=== PATIENT | male | born 1965 | race Caucasian/White ===

== ENCOUNTER 2017-06-29 04:32 | Emergency (ER) | payer MEDICAID ==
[~2017-06-29] VITALS: Ht 185.4 cm; Wt 109.0 kg
[2017-06-29] MEDS ORDERED: SODIUM CHLORIDE 0.9% 1,000 ML IV ONE (05:15)
[2017-06-29] MEDS ORDERED: ONDANSETRON HCL 4MG/2ML VIAL IV ONE (05:15)
[2017-06-29] MEDS ORDERED: KETOROLAC 15MG/ML VIAL IV ONE (05:15)
[2017-06-29 05:19] LABS: BASOPHILS % 0.5 % (0.0-2.0); HEMATOCRIT. 41.2 % (42.0-52.0); HEMOGLOBIN. 14.1 g/dL (14.0-18.0); LYMPHOCYTES % 13.4 % (20.0-50.0); MEAN CORPUSCULAR VOLUME 81.6 fL (80.0-94.0); MEAN PLATELET VOLUME 8.3 fl (7.4-10.4); MONOCYTES % 9.1 % (2.0-8.0); PLATELET 188 x1000/uL (130-400); RED BLOOD CELL COUNT 5.04 mill/uL (4.7-6.1)
[2017-06-29 05:26] LABS: PROTHROMBIN TIME 10.1 sec (9.4-11.6)
[2017-06-29 05:37] LABS: CARBON DIOXIDE 25 mEq/L (21-32); CHLORIDE 105 mEq/L (98-107)
[2017-06-29 07:11] LABS: CLARITY URINE CLEAR (CLEAR); COLOR URINE YELLOW (YELLOW); GLUCOSE URINE NEGATIVE (NEGATIVE); KETONES URINE NEGATIVE (NEGATIVE); LEUKOCYTE ESTERASE URINE TRACE (NEGATIVE); NITRITE URINE NEGATIVE (NEGATIVE); OCCULT BLOOD URINE NEGATIVE (NEGATIVE); PROTEIN URINE NEGATIVE (NEGATIVE); SPECIFIC GRAVITY URINE 1.033 (1.005-1.030)
[2017-06-29] MEDS ORDERED: CEFTRIAXONE 1 G PREMIX 50 ML IV ONE (07:15)
[2017-06-29] MEDS ORDERED: AZITHROMYCIN 500 MG TABLET PO ONE (07:15)
[2017-06-29] MEDS ORDERED: IOHEXOL-300 100 ML BOTTLE ONE (09:53)
[2017-06-29 10:56] VITALS: BP 127/85
[2017-07-02 05:20] LABS: CHLAMYDIA TRACHOMATIS NAA Negative (Negative); NEISSERIA GONORRHOEAE NAA Negative (Negative)
== END 2017-06-29 10:57 | disposition home or self-care (01) ==
LOC: ER 04:32
DX: N43.3 Hydrocele, unspecified (principal); N45.3 Epididymo-orchitis; K76.89 Other specified diseases of liver; N40.0 Benign prostatic hyperplasia without lower urinary tract symptoms; F12.10 Cannabis abuse, uncomplicated
CPT/HCPCS: 36415; 74177; 76870; 80053; 81001; 83690; 85025; 85610; 87086; 87491; 87591; 93976; 96361; 96365; 96375; 99285; J0696; J1885; J2405; J7030; Q9967; Z7610

== ENCOUNTER 2017-09-19 05:40 | Emergency (ER) | payer MEDICAID ==
[~2017-09-19] VITALS: Ht 188 cm; Wt 104.0 kg
[2017-09-19] MEDS ORDERED: ONDANSETRON HCL 4MG/2ML VIAL IV STA (07:35)
[2017-09-19] MEDS ORDERED: MORPHINE SULFATE 4 MG/ML CPJ (NOT FOR IM USE) IV STA (07:35)
[2017-09-19 08:03] LABS: BASOPHILS % 0.3 % (0.0-2.0); EOSINOPHILS % 0.4 % (0.0-5.0); HEMATOCRIT. 38.4 % (42.0-52.0); HEMOGLOBIN. 12.9 g/dL (14.0-18.0); LYMPHOCYTES % 7.1 % (20.0-50.0); MEAN CORPUSCULAR HEMOGLOBIN 26.8 pg (28.0-32.0); MEAN CORPUSCULAR VOLUME 80.1 fL (80.0-94.0); MEAN PLATELET VOLUME 8.4 fl (7.4-10.4); NEUTROPHILS % 83.2 % (40.0-76.0); PLATELET 284 x1000/uL (130-400); RED BLOOD CELL COUNT 4.79 mill/uL (4.7-6.1); RED CELL DISTRIBUTION WIDTH 13.7 % (11.6-14.6)
[2017-09-19 08:06] LABS: CHLORIDE 97 mEq/L (98-107)
[2017-09-19] MEDS ORDERED: CEFTRIAXONE 1 G PREMIX 50 ML IV ONE (09:15)
[2017-09-19] MEDS ORDERED: AZITHROMYCIN 500 MG TABLET PO ONE (09:45)
[2017-09-19 10:16] LABS: CLARITY URINE CLEAR (CLEAR); COLOR URINE DARK YELLOW (YELLOW); KETONES URINE TRACE (NEGATIVE); LEUKOCYTE ESTERASE URINE NEGATIVE (NEGATIVE); NITRITE URINE NEGATIVE (NEGATIVE); OCCULT BLOOD URINE TRACE (NEGATIVE); PH URINE 5.5 (4.5-8.0); PROTEIN URINE TRACE (NEGATIVE); SPECIFIC GRAVITY URINE 1.026 (1.005-1.030)
[2017-09-19 11:57] VITALS: BP 115/80
== END 2017-09-19 12:01 | disposition home or self-care (01) ==
LOC: ER 05:46
DX: N40.0 Benign prostatic hyperplasia without lower urinary tract symptoms (principal); N45.3 Epididymo-orchitis; N43.3 Hydrocele, unspecified
CPT/HCPCS: 36415; 76870; 80053; 81003; 85025; 93976; 96365; 96375; 99285; J0696; J2270; J2405; Z7610

== ENCOUNTER 2019-06-20 06:26 | Emergency (ER) | payer MEDICAID ==
[~2019-06-20] VITALS: Ht 188 cm; Wt 116.0 kg
[2019-06-20] MEDS ORDERED: KETOROLAC 30MG/ML VIAL IM ONE (07:45)
[2019-06-20 08:09] VITALS: BP 143/75
== END 2019-06-20 14:06 | disposition left against medical advice (07) ==
LOC: ER 06:26
DX: M79.642 Pain in left hand (principal); M79.632 Pain in left forearm; M25.532 Pain in left wrist; N40.0 Benign prostatic hyperplasia without lower urinary tract symptoms
CPT/HCPCS: 29125; 73090; 73110; 73130; 96372; 99283; J1885

== ENCOUNTER 2020-06-14 19:57 | Emergency (ER) | payer MEDICAID ==
[~2020-06-14] VITALS: Ht 188 cm; Wt 113.0 kg
[2020-06-14 20:11] VITALS: BP 97/67
[2020-06-14] MEDS ORDERED: OXYCODONE HCL/ACETAMINOPHEN 5/325MG TABLET PO ONE (20:45)
[2020-06-14] MEDS ORDERED: ACETAMINOPHEN WITH CODEINE 300/30MG TABLET PO ONE (20:45)
[2020-06-14] MEDS ORDERED: KETOROLAC 60MG/2ML VIAL IM ONE (20:45)
[2020-06-14] MEDS ORDERED: CEFTRIAXONE SODIUM 250 MG/VIAL IM ONE (22:30)
[2020-06-14] MEDS ORDERED: AZITHROMYCIN 500 MG TABLET PO ONE (22:30)
== END 2020-06-14 22:39 | disposition home or self-care (01) ==
LOC: ER 19:57
DX: N50.812 Left testicular pain (principal); N50.811 Right testicular pain; N45.3 Epididymo-orchitis; N40.0 Benign prostatic hyperplasia without lower urinary tract symptoms
CPT/HCPCS: 76870; 93005; 93976; 96372; 99284; J0696; J1885

== ENCOUNTER 2022-09-05 20:12 | Emergency (ER) | payer MEDICAID, OTHER ==
[~2022-09-05] VITALS: Ht 188 cm; Wt 118.0 kg
[2022-09-05 20:23] VITALS: BP 114/73
[2022-09-05] MEDS ORDERED: BENZ100C86 MT (23:45)
== END 2022-09-06 00:02 | disposition home or self-care (01) ==
LOC: ER 20:12
DX: J40 Bronchitis, not specified as acute or chronic (principal); R50.9 Fever, unspecified; N40.0 Benign prostatic hyperplasia without lower urinary tract symptoms; F15.10 Other stimulant abuse, uncomplicated; F12.10 Cannabis abuse, uncomplicated; Z28.310 Unvaccinated for COVID-19; Z20.822 Contact with and (suspected) exposure to COVID-19
CPT/HCPCS: 71045; 87426; 87804; 99284; C9803

== ENCOUNTER 2024-10-09 18:15 | Emergency (ER) | payer MEDICAID, OTHER ==
[~2024-10-09] VITALS: Ht 188 cm; Wt 118.0 kg
[~2024-10-09 18:15] MED LIST: BENZ100C86 MT
[2024-10-09 18:16] VITALS: O2SAT 97
[2024-10-09 22:45] LABS: CLARITY URINE CLOUDY (CLEAR); COLOR URINE DARK YELLOW (YELLOW); GLUCOSE URINE NEGATIVE (NEGATIVE); KETONES URINE NEGATIVE (NEGATIVE); LEUKOCYTE ESTERASE URINE 1+ (NEGATIVE); NITRITE URINE NEGATIVE (NEGATIVE); OCCULT BLOOD URINE NEGATIVE (NEGATIVE); PH URINE 5.5 (4.5-8.0); PROTEIN URINE 1+ (NEGATIVE); SPECIFIC GRAVITY URINE 1.034 (1.005-1.030)
[2024-10-09] MEDS ORDERED: KETOROLAC 30MG/ML VIAL IM ONE (22:45)
[2024-10-09] MEDS ORDERED: CEFTRIAXONE SODIUM 500MG VIAL IM ONE (22:45)
[2024-10-09 23:09] LABS: BACTERIA URINE TRACE; RBC URINE 0-2 /hpf (0-2); SQUAMOUS EPITHELIAL CELL URINE FEW /lpf (RARE/1+); WBC URINE 25-50 /hpf (0-2)
[2024-10-09] MEDS ORDERED: NAPR-681 MT (23:25)
[2024-10-09] MEDS ORDERED: CIPR-263 MT (23:25)
[2024-10-09] MEDS: CEFTRIAXONE SODIUM 500MG VIAL IM NR (23:35)
[2024-10-09] MEDS: KETOROLAC 30MG/ML VIAL IM NR (23:35)
[2024-10-10 00:36] VITALS: BP 139/90; PULSE 76; RESP 22; TEMP 36.7; O2SAT 97
== END 2024-10-10 00:39 | disposition home or self-care (01) ==
LOC: ER 18:15
DX: N45.3 Epididymo-orchitis (principal); F12.90 Cannabis use, unspecified, uncomplicated; F15.90 Other stimulant use, unspecified, uncomplicated; Z79.1 Long term (current) use of non-steroidal anti-inflammatories (NSAID)
CPT/HCPCS: 99285; 93976; 81003; 87086; 76870; 96372 ×2; J1885; J0696